=== PATIENT | male | born 1985 | race Caucasian/White ===

== ENCOUNTER 2018-06-28 22:19 | Emergency (ER) | payer SELFPAY ==
[~2018-06-28] VITALS: Ht 167.6 cm; Wt 72.6 kg
[2018-06-28 22:19] VITALS: BP 160/120
--- NOTE | 2018-06-28 22:19 | NUR ---
PRE-BOOK, BIB [facility] [employer]. C/O LEFT SHOULDER PAIN X2 DAYS. 12/26 PAIN. CMS INTACT, BILAT UPPER EXTREMITIES.
--- NOTE | 2018-06-28 22:19 | NUR ---
HUI ALCANTAR, PREBOOK. TAKEN TO CHAIR E
--- NOTE | 2018-06-28 23:31 | NUR ---
PT TO XRAY VIA W/C IN STABLE CONDTION WITH [facility] [employer]
--- NOTE | 2018-06-28 23:39 | NUR ---
PT RETURNED FROM XRAY VIA W/C IN STABLE CONDITION
[2018-06-29 01:32] VITALS: BP 158/97
--- NOTE | 2018-06-29 01:32 | NUR ---
PATIENT BIB [facility] [employer]. PATIENT EXAMINED BY DR. OVALLE. PATIENT MEDICALLY CLEARED AND RELEASED IN CUSTODY IN STABLE CONDITION. ORIGINAL PRE-BOOK FORM GIVEN TO OFFICER SAMMY.
--- NOTE | 2018-06-29 01:33 | NUR ---
Patient discharged with v/s stable. Written and verbal after care instructions given and explained. Patient verbalized understanding. Police with in custody. All questions addressed prior to discharge. Advised to follow up with PMD.
== END 2018-06-29 01:33 ==
LOC: MED 22:19
DX: S43.402A Unspecified sprain of left shoulder joint, initial encounter (principal); Y35.813A Legal intervention involving manhandling, suspect injured, initial encounter; Y93.89 Activity, other specified; Y92.89 Other specified places as the place of occurrence of the external cause; Y99.8 Other external cause status
CPT/HCPCS: 73030; 99283